=== PATIENT | male | born 1995 | race Asian ===

== ENCOUNTER 2017-04-30 22:39 | Inpatient (IN) | payer OTHER ==
[~2017-04-30] VITALS: Ht 175.3 cm; Wt 75.7 kg
[2017-05-01] VITALS (7 sets, daily range): BP systolic 96–127; BP diastolic 58–81
[2017-05-01 00:14] LABS: BASOPHIL % 0.6 % (0-2); PLATELET COUNT 222 x10^3mcL (130-400); RED CELL DISTRIBUTION WIDTH 12.4 % (11.5-14.5)
[2017-05-01 00:28] LABS: CALCIUM 8.9 mg/dL (8.5-10.1); CHLORIDE SERUM 106 mmol/L (98-107); CREATININE SERUM 1.2 mg/dL (0.7-1.3); GFR1 > 60 mL/min; GLUCOSE SERUM 97 mg/dL (74-106); POTASSIUM SERUM 3.6 mmol/L (3.5-5.1); SODIUM SERUM 142 mmol/L (136-145)
[2017-05-01 00:32] LABS: ALBUMIN 4.3 g/dL (3.4-5.0); ALKALINE PHOSPHATASE 62 U/L (46-116); ALT/SGPT 22 U/L (16-63); AST/SGOT 17 U/L (15-37); BILIRUBIN TOTAL 0.7 mg/dL (0.20-1.00); TOTAL PROTEIN, SERUM 7.4 g/dL (6.4-8.2)
[2017-05-01 01:28] LABS: UA SPECIFIC GRAVITY >=1.030 (1.005-1.035); microscopic required? YES; urine erythrocyte NEGATIVE (NEGATIVE)
[2017-05-01 01:35] LABS: AMPHETAMINE QUAL UR POSITIVE (NEG <=1000)
[2017-05-01 02:18] LABS: CHOLESTEROL/HDL RATIO 3.2; MAGNESIUM 2.2 mg/dL (1.8-2.4); PHOSPHOROUS 3.5 mg/dL (2.5-4.9)
[2017-05-01 02:21] LABS: T3 TOTAL 1.44 ng/mL
[2017-05-01 02:26] LABS: FREE T4 1.62 ng/dL (0.76-1.46); FREE THYROXINE INDEX 4.5 ug/dL (1.4-4.5); T4(THYROXINE) 11.9 ug/dL (4.7-13.3)
[2017-05-02 05:53] LABS: BASOPHIL % 0.4 % (0-2); PLATELET COUNT 171 x10^3mcL (130-400); RED CELL DISTRIBUTION WIDTH 12.9 % (11.5-14.5)
[2017-05-02 05:59] VITALS: BP 119/87
[2017-05-02 06:32] LABS: CALCIUM 8.8 mg/dL (8.5-10.1); CARBON DIOXIDE 26.3 mmol/L (21-32); CHLORIDE SERUM 109 mmol/L (98-107); CREATININE SERUM 0.9 mg/dL (0.7-1.3); GFR1 > 60 mL/min; GLUCOSE SERUM 87 mg/dL (74-106); MAGNESIUM 2.1 mg/dL (1.8-2.4); PHOSPHOROUS 3.5 mg/dL (2.5-4.9); POTASSIUM SERUM 4.1 mmol/L (3.5-5.1); SODIUM SERUM 143 mmol/L (136-145)
[2017-05-02 09:34] VITALS: BP 107/60
[2017-05-02 12:12] VITALS: Ht 175.3 cm; Wt 75.7 kg
[2017-05-02] MEDS ORDERED: FOL1 PO (12:34)
[2017-05-02] MEDS ORDERED: ATI1 PO (12:34)
[2017-05-02] MEDS ORDERED: THI100 PO (12:35)
[2017-05-02] MEDS ORDERED: THERA TABS1 TAB PO (12:36)
[2017-05-02] MEDS ORDERED: SEROQUEL50 M1 PO (12:48)
[2017-05-02 12:59] VITALS: BP 107/60
== END 2017-05-02 14:05 | disposition home or self-care (01) | DRG 776 ==
LOC: ED 22:39 → DU 05-01 01:19
PROVIDERS: Emergency Medicine; ADMIT Family Medicine
DX: F15.20 Other stimulant dependence, uncomplicated (principal); N17.0 Acute kidney failure with tubular necrosis; G92 Toxic encephalopathy; F31.30 Bipolar disorder, current episode depressed, mild or moderate severity, unspecified; F12.10 Cannabis abuse, uncomplicated; F41.9 Anxiety disorder, unspecified; F17.210 Nicotine dependence, cigarettes, uncomplicated; Z68.24 Body mass index [BMI] 24.0-24.9, adult; E78.5 Hyperlipidemia, unspecified
CPT/HCPCS: 83880; 84439; G0480; J2060; J7030

== ENCOUNTER 2017-05-05 23:15 | Emergency (ER) | payer OTHER ==
[~2017-05-05 23:15] MED LIST: ATI1 PO; FOL1 PO; SEROQUEL50 M1 PO; THERA TABS1 TAB PO; THI100 PO
[2017-05-05 23:39] LABS: BASOPHIL % 0.7 % (0-2); PLATELET COUNT 220 x10^3mcL (130-400); RED CELL DISTRIBUTION WIDTH 12.6 % (11.5-14.5)
[2017-05-05 23:47] LABS: CALCIUM 8.9 mg/dL (8.5-10.1); CARBON DIOXIDE 16.6 mmol/L (21-32); CHLORIDE SERUM 101 mmol/L (98-107); CREATININE SERUM 1.4 mg/dL (0.7-1.3); GFR1 > 60 mL/min; GLUCOSE SERUM 70 mg/dL (74-106); POTASSIUM SERUM 3.2 mmol/L (3.5-5.1); SODIUM SERUM 140 mmol/L (136-145)
[2017-05-05 23:52] LABS: ALBUMIN 4.6 g/dL (3.4-5.0); ALKALINE PHOSPHATASE 57 U/L (46-116); ALT/SGPT 20 U/L (16-63); AST/SGOT 22 U/L (15-37); BILIRUBIN TOTAL 0.9 mg/dL (0.20-1.00); TOTAL PROTEIN, SERUM 7.8 g/dL (6.4-8.2)
[2017-05-06 03:03] LABS: ALBUMIN 3.7 g/dL (3.4-5.0); ALKALINE PHOSPHATASE 47 U/L (46-116); ALT/SGPT 12 U/L (16-63); AST/SGOT 26 U/L (15-37); BILIRUBIN TOTAL 0.74 mg/dL (0.20-1.00); CALCIUM 7.8 mg/dL (8.5-10.1); CARBON DIOXIDE 17.8 mmol/L (21-32); CHLORIDE SERUM 112 mmol/L (98-107); CREATININE SERUM 1.1 mg/dL (0.7-1.3); GFR1 > 60 mL/min; POTASSIUM SERUM 3.9 mmol/L (3.5-5.1); SODIUM SERUM 147 mmol/L (136-145); TOTAL PROTEIN, SERUM 6.2 g/dL (6.4-8.2)
[2017-05-06 03:06] LABS: GLUCOSE SERUM 55 mg/dL (74-106)
[2017-05-06 05:26] LABS: AMPHETAMINE QUAL UR POSITIVE (NEG <=1000)
[2017-05-06 06:10] LABS: MAGNESIUM 1.9 mg/dL (1.8-2.4); PHOSPHOROUS 3.8 mg/dL (2.5-4.9)
[2017-05-06 17:55] LABS: CALCIUM 7.9 mg/dL (8.5-10.1); CARBON DIOXIDE 21.7 mmol/L (21-32); CHLORIDE SERUM 109 mmol/L (98-107); CREATININE SERUM 0.9 mg/dL (0.7-1.3); GFR1 > 60 mL/min; GLUCOSE SERUM 79 mg/dL (74-106); SODIUM SERUM 139 mmol/L (136-145)
[2017-05-06 18:00] LABS: ALKALINE PHOSPHATASE 46 U/L (46-116); ALT/SGPT 26 U/L (16-63); AST/SGOT 33 U/L (15-37); BILIRUBIN TOTAL 0.8 mg/dL (0.20-1.00)
[2017-05-06 18:01] LABS: ALBUMIN 3.2 g/dL (3.4-5.0); TOTAL PROTEIN, SERUM 5.6 g/dL (6.4-8.2)
[2017-05-06 22:09] VITALS: BP 100/64
== END 2017-05-06 22:09 | disposition home or self-care (01) ==
LOC: ED 23:15
PROVIDERS: Emergency Medicine; Family Medicine
DX: R41.82 Altered mental status, unspecified (principal); E87.2 Acidosis; E16.1 Other hypoglycemia; F99 Mental disorder, not otherwise specified
CPT/HCPCS: 36600; 82693; 82962; 83880; 84439; G0480; J1630; J3411; J3475; J3490; J7030

== ENCOUNTER 2017-08-12 02:24 | Emergency (ER) | payer OTHER ==
[2017-08-12 04:00] VITALS: BP 122/77
== END 2017-08-12 04:00 | disposition home or self-care (01) ==
LOC: ED 02:24
DX: F15.10 Other stimulant abuse, uncomplicated (principal)
CPT/HCPCS: J1630; J2060

== ENCOUNTER 2017-10-15 12:26 | Emergency (ER) | payer OTHER ==
[~2017-10-15] VITALS: Ht 177.8 cm; Wt 70.5 kg
[2017-10-15 15:37] VITALS: BP 112/65
== END 2017-10-15 16:20 | disposition home or self-care (01) ==
LOC: ED 12:26
DX: F41.9 Anxiety disorder, unspecified (principal); T43.625A Adverse effect of amphetamines, initial encounter; Y92.89 Other specified places as the place of occurrence of the external cause
CPT/HCPCS: J2250

== ENCOUNTER 2017-11-24 14:44 | Emergency (ER) | payer OTHER ==
[2017-11-24 16:10] VITALS: BP 121/75
== END 2017-11-24 16:10 | disposition home or self-care (01) ==
LOC: ED 14:44
DX: S50.811A Abrasion of right forearm, initial encounter (principal); S10.91XA Abrasion of unspecified part of neck, initial encounter; X58.XXXA Exposure to other specified factors, initial encounter; Y93.89 Activity, other specified; Y92.89 Other specified places as the place of occurrence of the external cause; Y99.8 Other external cause status
CPT/HCPCS: 90715